=== PATIENT | female | born 1950 | race Caucasian/White ===

== ENCOUNTER → 2023-04-09 10:29 | Outpatient (CLI) | payer MEDICARE, OTHER, SELFPAY ==
--- NOTE | ~2023-04-09 | MR_ITS ---
EXAMINATION: MR knee LT wo con DATE: 04/09/2023 11:10 INDICATION: Left knee pain. TECHNIQUE: Magnetic resonance imaging (MRI) of the left knee was performed without intravenous contra st. Sequences included axial PD-weighted FS FSE, coronal PD-weighted FSE and PD-weighted FS FSE, sagi ttal PD-weighted FSE, and sagittal T2-weighted FS FSE. COMPARISON: Left knee radiographs 02/20/2023 FINDINGS: Medial compartment: Medial meniscus is normal. There is partial-thickness cartilage loss of femoral condyle, deep at the central articular surface. There is cartilage surface irregularity of tibial condyle. Osteophytes are noted. Lateral compartment: There is a radial tear of the junction of body and posterior horn of lateral meniscus. There is parti al-thickness cartilage loss of tibial condyle, deep posteriorly. There is full-thickness cartilage lo ss of femoral condyle involving the central articular surface with an intra-articular osteophyte. Mar ginal osteophytes are noted. Patellofemoral compartment: There is shallow partial-thickness cartilage loss of patellar median ridge and lateral facet. There i s partial-thickness cartilage loss of trochlea, deep laterally. Osteophytes are noted. Ligaments and tendons: The anterior and posterior cruciate ligaments are normal. Medial collateral ligament and lateral pankaj ateral ligament complex are normal. There is mild patellar tendinopathy. Fluid: There is a small knee joint effusion. There is trace fluid in a Moore's cyst. IMPRESSION: 1. Severe chondrosis of lateral compartment and moderate chondrosis of medial and patellofemoral comp artments. 2. Tear of lateral meniscus. 3. Small knee joint effusion. Reviewed, dictated and finalized at location E. IMPRESSION: 1. Severe chondrosis of lateral compartment and moderate chondrosis of medial a nd patellofemoral compartments. 2. Tear of lateral meniscus. 3. Small knee joint effusion.
== END ==
PROVIDERS: PCP Family Medicine; Visit Provider Physician Assistant Surgical
DX: M25.462 Effusion, left knee (principal); S83.282D Other tear of lateral meniscus, current injury, left knee, subsequent encounter; X58.XXXD Exposure to other specified factors, subsequent encounter
CPT/HCPCS: 73721